=== PATIENT | male | born 2000 | race Two or more races ===

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

== ENCOUNTER 2018-05-14 19:13 | Emergency (ER) | payer MEDICAID ==
--- NOTE | 2018-05-14 19:20 | EDPHY ---
H & P Stated Complaint: [facility] fall hiking 3 days ago. Medial low back pain Time Seen by Provider: 05/14/18 19:19 HPI/ROS: HPI CHIEF COMPLAINT: Low back pain. HISTORY OF PRESENT ILLNESS: 17-year-old male, otherwise healthy, no medical history does not take any daily medications presents emergency room he states 3- 4 days ago [place] he slipped and fell landing on his butt and low back. He now complains of lumbar back pain. He denies any radicular pain, denies pain going down his legs, denies saddle anesthesia, denies leg weakness, denies bladder or bowel incontinence. Denies abdominal pain chest pain shortness of breath, denies blood in his urine. No other complaints. Main complaint 11/17 low back pain. Has been taking ibuprofen with minimal relief. Past Medical History: Denies significant medical history Past Surgical History: Denies significant surgical history Social History: Denies drugs alcohol tobacco. Family History: Noncontributory ROS REVIEW OF SYSTEMS: 10 Systems were reviewed and negative with the exception of the elements mentioned in the history of present illness. Exam Constitutional triage nursing summary reviewed, vital signs reviewed, awake/ alert. Eyes normal conjunctivae and sclera, EOMI, PERRLA. HENT normal inspection, atraumatic, moist mucus membranes, no epistaxis, neck supple/ no meningismus, no raccoon eyes. Respiratory clear to auscultation bilaterally, normal breath sounds, no respiratory distress, no wheezing. Cardiovascular rate normal, regular rhythm, no murmur, no edema, distal pulses normal. Gastrointestinal soft, non-tender, no rebound, no guarding, normal bowel sounds, no distension, no pulsatile mass. Genitourinary no CVA tenderness. Musculoskeletal lumbar spine: Mild tender palpation midline lumbar spine but no crepitus or step-offs, no obvious sign of trauma on his back exam. No leg weakness no red flags., full range of motion, no calf swelling, no tenderness of extremities, no meningismus, good pulses, neurovascularly intact. Skin pink, warm, & dry, no rash, skin atraumatic. Neurologic awake, alert and oriented x 3, AAOx3, moves all 4 extremities equally, motor intact, sensory intact, CN II-XII intact, normal cerebellar, normal vision, normal speech. Psychiatric normal mood/affect. Heme/Lymph/Immune no lymphadenopathy. Differential Diagnosis: Includes but is not limited to in a particular order compression fracture, lumbar strain, disc herniation, annular tear musculoskeletal strain, muscle spasm Medical Decision Making: Plan for this patient Lithia for pain control, lumbar spine x-ray, UA and re-evaluate. Re-evaluation: 2044: Patient re-evaluated this time. Resting comfortably. No red flags. No saddle anesthesia no leg weakness. Back pain is improved after Lithia here in the emergency room. Resting comfortably. X-ray reviewed shows no acute new fracture. Patient is more comfortable after Lithia. Recommend ice, rest, anti-inflammatory pain medicine. Return precautions discussed. No blood seen in urine. Patient had no flank pain on exam. Source: Patient - Personal History Current Tetanus/Diphtheria Vaccine: Unsure Current Tetanus Diphtheria and Acellular Pertussis (TDAP): Unsure - Medical/Surgical History Hx Asthma: No Hx Chronic Respiratory Disease: No Hx Diabetes: No Hx Cardiac Disease: No Hx Renal Disease: No Hx Cirrhosis: No Hx Alcoholism: No Hx HIV/AIDS: No Hx Splenectomy or Spleen Trauma: No Other PMH: Denies - Social History Smoking Status: Never smoked Constitutional: Initial Vital Signs Temperature (C) 36.6 C 05/14/18 19:15 Heart Rate 98 05/14/18 19:15 Respiratory Rate 20 05/14/18 19:15 Blood Pressure 163/74 H 05/14/18 19:15 O2 Sat (%) 99 05/14/18 19:15 O2 Delivery Mode Room Air Allergies/Adverse Reactions: No Known Allergies Allergy (Verified 05/14/18 19:14) Home Medications: Medication Instructions Recorded Ibuprofen [Motrin (*)] 800 mg PO Q6-8PRN #14 tab 05/14/18 Medical Decision Making - Diagnostics Imaging Results: Imaging Impressions Lumbar Spine X-Ray 05/14/18 19:32 Impression: Nothing acute or subacute identified. - Data Points Laboratory Results: 05/14/18 20:05 Urine Color YELLOW Urine Appearance CLEAR Urine pH 6.0 (5.0-7.5) Ur Specific [place] 1.023 (1.002-1.030) Urine Protein NEGATIVE (NEGATIVE) Urine Ketones NEGATIVE (NEGATIVE) Urine Blood NEGATIVE (NEGATIVE) Urine Nitrate NEGATIVE (NEGATIVE) Urine Bilirubin NEGATIVE (NEGATIVE) Urine Urobilinogen NEGATIVE EU EU (0.2-1.0) Ur Leukocyte Esterase NEGATIVE (NEGATIVE) Urine Glucose NEGATIVE (NEGATIVE) Medications Given: Discontinued Medications Hydrocodone Bitart/Acetaminophen (Lithia 10/325) 1 tab PO EDNOW ONE Stop: 05/14/18 19:33 Last Admin: 05/14/18 19:53 Dose: 1 tab Departure - Departure Disposition: Home, Routine, Self-Care Clinical Impression: Back pain Qualifiers: Back pain location: low back pain Chronicity: acute Back pain laterality: unspecified Sciatica presence: without sciatica Qualified Code(s): M54.5 - Low back pain Condition: Good Instructions: Low Back Strain (ED), Back Pain (ED) Additional Instructions: 1. Recommend rest. 2. Recommend anti-inflammatory pain medicine 3. Recommend ice. 4. Return emergency room if worsening pain questions or concerns. Referrals: NONE *PRIMARY CARE P,. [Primary Care Provider] - As per Instructions Prescriptions: Ibuprofen [Motrin (*)] 800 mg PO Q6-8PRN #14 tab
[2018-05-14] MEDS ORDERED: HYDROCODONE/APAP 10/325 TAB PO ONE (19:32)
[2018-05-14 20:48] VITALS: BP 127/76
== END 2018-05-14 20:46 | disposition home or self-care (01) ==
DX: M54.5 Low back pain (principal); W01.0XXA Fall on same level from slipping, tripping and stumbling without subsequent striking against object, initial encounter; Y93.01 Activity, walking, marching and hiking; Y92.828 Other wilderness area as the place of occurrence of the external cause